=== PATIENT | female | born 1955 | race Caucasian/White ===

== ENCOUNTER 2017-12-01 07:51 | Day surgery (SDC) | payer OTHER ==
[~2017-12-01 07:51] MED LIST: CEFAZOLIN 1 GM INJ; LIDOCAINE 2% (SDV) 5 ML INJ; ROCURONIUM 50 MG INJ
[2017-12-01] MEDS: SOD CHLORIDE 0.9% 1,000 ML IV (09:57)
[2017-12-01] MEDS ORDERED: PROPOFOL 100 ML (13:35)
[2017-12-01] MEDS: CEFAZOLIN 2 GM/50 ML (PMX) 50 ML IVPB (13:50)
[2017-12-01] MEDS: ISOSULFAN BLUE 1% 5 ML INJ SC (14:02)
[2017-12-01] MEDS ORDERED: ONDANSETRON 4 MG INJ (14:14)
[2017-12-01] MEDS ORDERED: DEXAMETHASONE 4 MG/ML 1 ML INJ (14:14)
[2017-12-01] MEDS ORDERED: ACETAMINOPHEN 1000MG/100ML IV 100 ML (14:26)
[2017-12-01] MEDS ORDERED: SUGAMMADEX SODIUM 200 MG/2 ML VIAL IV (14:49)
[2017-12-01] MEDS: FENTAnyl 50 MCG/ML VIAL IV ×2 (15:23→15:32)
[2017-12-01] MEDS ORDERED: FENTAnyl 50 MCG/ML VIAL IV ×2 (15:30)
[2017-12-01] MEDS ORDERED: DIPHENHYDRAMINE 50 MG INJ IV (15:30)
[2017-12-01] MEDS ORDERED: hydrALAzine 20 MG INJ IV (15:30)
[2017-12-01] MEDS ORDERED: ONDANSETRON 4 MG INJ IV (15:30)
[2017-12-01] MEDS ORDERED: HYDROmorphONE 1 MG/5 ML IV SYRINGE IV ×3 (15:30)
[2017-12-01] MEDS ORDERED: METOCLOPRAMIDE 10 MG INJ IV (15:30)
[2017-12-01] MEDS ORDERED: OXYCODONE/ACETAMINOPHEN (5/325) TAB PO (15:30)
[2017-12-01] MEDS ORDERED: EPHEDrine SULFATE 50 MG/5 ML SYG IV (15:30)
[2017-12-01] MEDS ORDERED: LABETALOL HCL 20MG INJ IV (15:30)
[2017-12-01] MEDS ORDERED: MEPERIDINE 25 MG INJ IV (15:30)
[2017-12-01] MEDS ORDERED: KETOROLAC 30 MG INJ IV (15:30)
[2017-12-01] MEDS ORDERED: ALBUTEROL 0.083% (NEB) 2.5 MG/3 ML AMP HHN (15:30)
[2017-12-01] MEDS: HYDROCODONE/APAP (7.5/325) TAB PO (15:38)
[2017-12-01] MEDS: OXYCODONE/ACETAMINOPHEN (5/325) TAB PO (16:39)
== END 2017-12-01 17:05 | disposition home or self-care (01) ==
LOC: SDS 07:51
DX: C50.911 Malignant neoplasm of unspecified site of right female breast (principal); E78.5 Hyperlipidemia, unspecified; I10 Essential (primary) hypertension
CPT/HCPCS: 19301; 71045; 88307; 88331; 88342; 93005

== ENCOUNTER 2018-02-24 13:58 | Inpatient (IN) | payer OTHER ==
[2018-02-24 14:49] LABS: ABNORMAL IP MESSAGE 1; HEMATOCRIT 27.9 % (37.0-47.0); HEMOGLOBIN 9.4 g/dl (12.0-16.0); MEAN CORPUSCULAR HGB CONC 33.7 g/dl (32.0-37.0); MEAN CORPUSCULAR VOLUME 89.1 fl (82.0-101.0); MEAN PLATELET VOLUME 8.9 fl (7.4-10.4); PLATELET COUNT 222 10^3/UL (140-415); RED BLOOD COUNT 3.13 10^6/ul (4.20-5.40); RED CELL DISTRIBUTION WIDTH 13.3 % (11.5-14.5)
[2018-02-24 14:49] LABS: WHITE BLOOD COUNT 1.1 10^3/ul (4.8-10.8)
[2018-02-24 14:56] LABS: POSITIVE DIFF @See below
[2018-02-24 14:57] LABS: ADD MAN DIFF? YES
[2018-02-24] MEDS: DEXTROSE 5%-LR 1,000 ML IV (15:01)
[2018-02-24] MEDS: morphine 4 MG/ML VIAL IV (15:02)
[2018-02-24] MEDS: ONDANSETRON 4 MG INJ IV ×2 (15:02→21:40)
[2018-02-24 15:04] LABS: ADD UMIC YES; UR AMORPHOUS CRYSTAL MODERATE /HPF (NONE SEEN); UR ASCORBIC ACID NEGATIVE (NEGATIVE); UR BACTERIA FEW /HPF (NONE SEEN); UR BILIRUBIN (Dip) NEGATIVE (NEGATIVE); UR BLOOD (Dip) 2+ mg/dL (NEGATIVE); UR CLARITY TURBID (CLEAR); UR COLOR YELLOW (YELLOW); UR GLUCOSE (Dip) NEGATIVE (NEGATIVE); UR KETONES (Dip) NEGATIVE (NEGATIVE); UR LEUKOCYTE ESTERASE (Dip) NEGATIVE Leu/ul (NEGATIVE); UR MUCUS MANY /HPF (NONE SEEN); UR NITRITE (Dip) NEGATIVE (NEGATIVE); UR RBC 24 /HPF (0-5); UR SPECIFIC GRAVITY (Dip) 1.026 (1.003-1.030); UR TOTAL PROTEIN (Dip) 1+ mg/dl (NEGATIVE); UR UROBILINOGEN (Dip) NEGATIVE (NEGATIVE); UR WBC 55 /HPF (0-5)
[2018-02-24 15:06] LABS: ALANINE AMINOTRANSFERASE 28 IU/L (13-69); ALBUMIN/GLOBULIN RATIO 1.48; ALKALINE PHOSPHATASE 58 IU/L (42-121); ANION GAP 11 (5-13); ASPARTATE AMINO TRANSFERASE 26 IU/L (15-46); BILIRUBIN,INDIRECT 0.4 mg/dl (0-1.1); BILIRUBIN,TOTAL 0.4 mg/dl (0.2-1.3); BLOOD UREA NITROGEN 23 mg/dl (7-20); CALCIUM 9.3 mg/dl (8.4-10.2); CARBON DIOXIDE 29 mmol/L (21-31); CHLORIDE 99 mmol/L (97-110); CREATININE 0.93 mg/dl (0.44-1.00); Estimated GFR > 60 mL/min (>60); GLUCOSE 135 mg/dl (70-220); LIPASE 39 U/L (23-300); POTASSIUM 3.7 mmol/L (3.5-5.1); SODIUM 139 mmol/L (135-144); TOTAL PROTEIN 6.7 g/dl (6.1-8.1); URIC ACID 3.4 mg/dl (3.1-7.9)
[2018-02-24 15:39] LABS: ANISOCYTOSIS 2+ (0-0); BASOPHILS % (M) 3 % (0-2); GIANT THROMBO% (M) 4 % (0-0); LYMPHOCYTES #M 0.6 10^3/ul (0.8-2.9); LYMPHOCYTES % (M) 58 % (15-51); MICROCYTOSIS 2+ (0-0); MONOCYTE #M 0.2 10^3/ul (0.3-0.9); MONOCYTES % (M) 22 % (0-11); PLATELET ESTIMATE NORMAL; POLYCHROMASIA 1+ (0-0); REACTIVE LYMPHOCYTES% (M) 8 % (0-0); SEGMENTED NEUTROPHILS (M) % 9 % (39-77); SMUDGE%M 5 % (0-0)
[2018-02-24] MEDS: METOCLOPRAMIDE 10 MG INJ IV (17:12)
[2018-02-24] MEDS ORDERED: ACETAMINOPHEN 325 MG TAB PO ×2 (18:30)
[2018-02-24] MEDS ORDERED: ONDANSETRON 4 MG INJ IV (18:30)
[2018-02-24] MEDS ORDERED: MAGNESIUM HYDROXIDE 30ML CUP PO (18:30)
[2018-02-24] MEDS ORDERED: morphine 2 MG INJ IV (18:30)
[2018-02-24] MEDS ORDERED: HYDROCODONE/APAP (5/325) TAB PO (18:30)
[2018-02-24] MEDS ORDERED: NACL 0.9% 3 ML SYG IV (18:30)
[2018-02-24] MEDS ORDERED: ZOLPIDEM 5 MG TAB PO (18:30)
[2018-02-24] MEDS ORDERED: DOCUSATE SODIUM 100 MG CAP PO (18:30)
[2018-02-24] MEDS ORDERED: LOPERAMIDE 2 MG CAP PO (19:00)
[2018-02-24] MEDS: NS + KCL 20 MEQ 1,000 ML IV (21:39)
[2018-02-24] MEDS: ATORVASTATIN 20 MG TAB PO (21:40)
[2018-02-24] MEDS: CEFTRIAXONE 1 GM/50 ML (PMX) 50 ML IVPB (21:40)
[2018-02-25 05:38] LABS: ABNORMAL IP MESSAGE 1; HEMATOCRIT 23.6 % (37.0-47.0); MEAN CORPUSCULAR HEMOGLOBIN 30.5 pg (29.0-33.0); MEAN CORPUSCULAR HGB CONC 33.9 g/dl (32.0-37.0); MEAN CORPUSCULAR VOLUME 90.1 fl (82.0-101.0); MEAN PLATELET VOLUME 9.3 fl (7.4-10.4); PLATELET COUNT 204 10^3/UL (140-415); RED BLOOD COUNT 2.62 10^6/ul (4.20-5.40); RED CELL DISTRIBUTION WIDTH 13.2 % (11.5-14.5)
[2018-02-25 05:38] LABS: WHITE BLOOD COUNT 1.6 10^3/ul (4.8-10.8)
[2018-02-25 05:53] LABS: POSITIVE DIFF @See below
[2018-02-25 05:54] LABS: ADD MAN DIFF? YES
[2018-02-25] MEDS: NS + KCL 20 MEQ 1,000 ML IV ×2 (06:21→14:30)
[2018-02-25 06:22] LABS: ANION GAP 5 (5-13); BLOOD UREA NITROGEN 17 mg/dl (7-20); CALCIUM 8.6 mg/dl (8.4-10.2); CARBON DIOXIDE 26 mmol/L (21-31); CHLORIDE 107 mmol/L (97-110); CREATININE 0.72 mg/dl (0.44-1.00); Estimated GFR > 60 mL/min (>60); GLUCOSE 94 mg/dl (70-220); MAGNESIUM 1.8 mg/dl (1.7-2.5); PHOSPHORUS 3.3 mg/dl (2.5-4.9); POTASSIUM 3.5 mmol/L (3.5-5.1); SODIUM 138 mmol/L (135-144)
[2018-02-25 07:33] LABS: ANISOCYTOSIS 2+ (0-0); BAND NEUTROPHILS % (M) 4 % (0-4); BASOPHILS % (M) 1 % (0-2); EOSINOPHILS % (M) 1 % (0-7); GIANT THROMBO% (M) 1 % (0-0); LYMPHOCYTES % (M) 64 % (15-51); MICROCYTOSIS 2+ (0-0); MONOCYTE #M 0.3 10^3/ul (0.3-0.9); MONOCYTES % (M) 23 % (0-11); PLATELET ESTIMATE NORMAL; POIKILOCYTOSIS 1+ (0-0); POLYCHROMASIA 1+ (0-0); PROMYELOCYTES % (M) 1 % (0-0); REACTIVE LYMPHOCYTES% (M) 2 % (0-0); SEG NEUT #M 0.1 10^3/ul (1.6-7.5); SEGMENTED NEUTROPHILS (M) % 4 % (39-77); SMUDGE%M 4 % (0-0)
[2018-02-25] MEDS: ASPIRIN 81 MG TAB PO ×2 (08:45→08:55)
[2018-02-25] MEDS: GABAPENTIN 300 MG CAP PO (08:45)
[2018-02-25] MEDS: CHOLECALCIFEROL 1,000 UNIT TAB PO (08:45)
[2018-02-25] MEDS: LOSARTAN 50 MG TAB PO (08:46)
[2018-02-25] MEDS: ENOXAPARIN 40 MG/0.4 ML SYG SC (08:47)
[2018-02-25] MEDS: FAMOTIDINE 20 MG TAB PO (08:48)
[2018-02-25] MEDS: CEFTRIAXONE 1 GM/50 ML (PMX) 50 ML IVPB (13:24)
[2018-02-26] MEDS ORDERED: CEFTRIAXONE 1 GM/50 ML (PMX) 50 ML IVPB (12:00)
== END 2018-02-25 20:00 | disposition home or self-care (01) | DRG 641 ==
LOC: E/R 13:58 → PP2 18:04
DX: E86.0 Dehydration (principal); K52.1 Toxic gastroenteritis and colitis; N39.0 Urinary tract infection, site not specified; R11.2 Nausea with vomiting, unspecified; D70.1 Agranulocytosis secondary to cancer chemotherapy; I10 Essential (primary) hypertension; T45.1X5A Adverse effect of antineoplastic and immunosuppressive drugs, initial encounter; C50.911 Malignant neoplasm of unspecified site of right female breast
CPT/HCPCS: 36415; 80048; 80053; 81001; 83036; 83690; 83735; 84100; 84560; 85025; 96374; 96375; 99285-25